=== PATIENT | female | born 1970 | race Caucasian/White ===

== ENCOUNTER 2016-11-29 18:18 | Emergency (ER) | payer OTHER ==
--- NOTE | 2016-11-29 20:27 | DIAGNOSTIC IMAGING REPORT ---
PROCEDURE: XR CHEST 2 VIEW INDICATION: CHEST PAIN TECHNIQUE: PA and lateral views. COMPARISON: Compared to chest x-ray and 04/01/2016. FINDINGS: Allowing for overlying wires and electrodes, lungs are clear. Heart and mediastinum are normal. Thorax is normal. IMPRESSION: 1. Negative chest.
--- NOTE | 2016-11-29 20:41 | DIAGNOSTIC IMAGING REPORT ---
PROCEDURE: CT HEAD WITHOUT CONTRAST INDICATION: Hypertension. Headache. TECHNIQUE: Noncontrast axial images with sagittal and coronal reformations. COMPARISON: Compared to a head CT on 07/01/2016. FINDINGS: Brain and ventricles are within normal limits (mild atrophic changes). The rest of the brain and ventricles are normal. No evidence of an acute process or hemorrhage. No evidence of hydrocephalous. Sinuses and mastoids are normal. IMPRESSION: 1. Negative head CT (mild atrophic changes). 2. Findings discussed with RUBEN Cespedes at [address] scans at this facility use dose modulation, iterative reconstruction, and/or weight-based dosing when appropriate to reduce radiation dose to as low as reasonably achievable.
--- NOTE | 2016-11-29 22:02 | DIAGNOSTIC IMAGING REPORT ---
PROCEDURE: CTA THORAX WITH CONTRAST INDICATION: Left chest pain after fall. Elevated D-dimer (2.03). TECHNIQUE: 90 ml of Isovue 370 was injected intravenously and axial images were obtained of the entire thorax with 3D sagittal and coronal MIP reconstructions. COMPARISON: Para chest x-ray on 11/29/2016. FINDINGS: There is minor scarring or atelectasis at the left lung base lungs are otherwise clear. Pulmonary vessels are normal and there is no evidence of pulmonary embolus. Heart and mediastinum are normal. Mild degenerative change of the thoracic spine. IMPRESSION: 1. Mild scarring or atelectasis at the left anterior lung base (lingular distribution). 2. No evidence of pulmonary embolus. 3. Findings discussed with RUBEN Cespedes. All CT scans at this facility use dose modulation, iterative reconstruction, and/or weight-based dosing when appropriate to reduce radiation dose to as low as reasonably achievable.
--- NOTE | 2016-11-29 22:46 | ED NURSING NOTES ---
Clinical Report - Nurses [facility] [address] [place] [address] 11/29/2016 18:17 Patient: TERRI VILLASEÑOR TRIAGE Triage time 18:24. Acuity: LEVEL 3. Chief Complaint: FALL (GLF Wednesday morning - tripped by the dog. She landed on the left side of her face (left orbit). Denies LOC at the time of the fall. Today she has had head pain and pain behind her left eye, nausea, vomiting. Also c/o pain behind left breast. Today her face became numb. She has been forgetful.). 18:31 11/29/16. SEPSIS SCREEN: Sepsis Screen. Negative (no infection suspected/documented). CAT COMA SCORE: Cat Coma Scale: 15- eyes open spontaneously (4); best verbal response- oriented x 4 (5); best motor response- obeys commands (6). --18:35 Chuy Martinez R.N. 18:24 11/29/16. BP: 210/96 (regular adult cuff) taken on the left arm, while lying. ED physician notified. HR: 67. RR: 20. O2 saturation: 100%. Temp: 98.9 F (oral). Pain level now: 8/10. Additional comments: Right arm b/p: 176/113. --18:35 Chuy Martinez R.N. 18:36 11/29/16. --18:36 Chuy Martinez R.N. 18:35 11/29/16. BP: 176/113 (regular adult cuff) taken on the right arm, while lying. ED physician notified. HR: 72. --18:36 Chuy Martinez R.N. Weight: 54.4 kg stated. Height/Length: 63 inches Per Patient. BMI: 21.2. --18:29 Chuy Martinez R.N. Medications Atenolol Oral 25 mg, at bedtime. Lisinopril Oral 20 mg, 2x a day. Omeprazole Oral 20 mg, daily. Ranitidine HCl Oral 150 mg, 2x a day. --18:28 Chuy Martinez R.N. Allergies Erythromycin. --18:28 Chuy Martinez R.N. History Arrived by private vehicle. Historian: patient. Treatment BANANA LOADER: None. Trauma activation: Pre-hospital notification of patient arrival was not received. PAST MEDICAL HX: Tetanus status: up-to-date. SOCIAL HX: Heavy tobacco smoker (cigarette)- less than 1 pack per day. Occasional alcohol use. No drug use. ABUSE ASSESSMENT: No report of abuse. --18:35 Chuy Martinez R.N. PROBLEMS: Gallbladder Disease. Hypertensive Headache. Substance Abuse. Alcoholic Liver Disease. Abdominal Pain. Hypertension. --18:28 Chuy Martinez R.N. ADDITIONAL SURGERIES: Hernia Repair. Previous Abdominal Surgery. Tubal Ligation. --18:28 Chuy Martinez R.N. Interventions ID band on patient. To treatment room. --18:35 Chuy Martinez R.N. NURSING PROGRESS NOTES 19:14 11/29/2016 Site #1 started via IV in the left wrist with an 20g angiocath, with aseptic technique and good blood return; one attempt. Blood drawn: rainbow set. Labeled in the presence of the patient and sent to the lab. Saline lock flushed with 10 mL saline. --19:17 Chuy Martinez R.N. EKG time: (19:15 PM). EKG was performed by a tech and shown to the ED physician. --19:17 Jenelle Padilla 19:14 11/29/2016 Zofran (Ondansetron HCl) IVP 4 mg given over 1 minute(s) via site #1. Allergies verified and confirmed 5 rights. IV patency established. IV site checked: no pain, redness, or swelling. IV flushed thoroughly pre- and post-medication administration. IVP given by RN. --19:18 Chuy Martinez R.N. 19:27 diazo technician with pt for blood draw. --19:27 Christ Bell R.N. 21:22 11/29/2016 Site #2 started via IV in the right antecubital space with an 18g angiocath, with aseptic technique and good blood return; one attempt. Saline lock flushed with saline. --21:22 Felix Gonzales R.N. 21:33 11/29/2016 Ativan (LORazepam) IVP 2 mg given. via site #2. Allergies verified, confirmed 5 rights and sedative warning given to the patient and patient's inventory control supervisor. IV patency established. IV site checked: no pain, redness, or swelling. IV flushed thoroughly pre- and post-medication administration. --21:58 Felix Gonzales R.N. DISPOSITION / DISCHARGE 23:06 11/29/2016 Site #2 removed upon discharge. Bandage applied. --23:06 Felix Gonzales R.N. 23:06 11/29/2016 Site #1 removed upon discharge. Bandage applied. --23:06 Felix Gonzales R.N. Departure time: 2300. Condition at departure: improved. No learning barriers present. Discharge instructions provided and reviewed with the patient and spouse. Reviewed warnings. Reviewed medication(s). Treatments reviewed. Activity restrictions reviewed. Patient and spouse verbalized understanding. Written instructions provided in Vietnamese. The patient was discharged by the physician quality control assistant. She was discharged home and accompanied by spouse. She left the Emergency Department ambulatory and via private vehicle. Spouse driving. --23:07 Felix Gonzales R.N. 23:05 11/29/16. BP: 161/95. HR: 80. RR: 16. O2 saturation: 98%. Temp: 98 F. Pain level now 0/10. --23:07 Felix Gonzales R.N. Locked/Released at 11/29/2016 23:07 by Felix Gonzales R.N.
--- NOTE | 2016-11-29 22:46 | ED NURSING NOTES ---
Clinical Report - Nurses [facility] [address] [place] [address] 11/29/2016 18:17 Patient: TERRI VILLASEÑOR TRIAGE Triage time 18:24. Acuity: LEVEL 3. Chief Complaint: FALL (GLF Wednesday morning - tripped by the dog. She landed on the left side of her face (left orbit). Denies LOC at the time of the fall. Today she has had head pain and pain behind her left eye, nausea, vomiting. Also c/o pain behind left breast. Today her face became numb. She has been forgetful.). 18:31 11/29/16. SEPSIS SCREEN: Sepsis Screen. Negative (no infection suspected/documented). CAT COMA SCORE: Cat Coma Scale: 15- eyes open spontaneously (4); best verbal response- oriented x 4 (5); best motor response- obeys commands (6). --18:35 Chuy Martinez R.N. 18:24 11/29/16. BP: 210/96 (regular adult cuff) taken on the left arm, while lying. ED physician notified. HR: 67. RR: 20. O2 saturation: 100%. Temp: 98.9 F (oral). Pain level now: 8/10. Additional comments: Right arm b/p: 176/113. --18:35 Chuy Martinez R.N. 18:36 11/29/16. --18:36 Chuy Martinez R.N. 18:35 11/29/16. BP: 176/113 (regular adult cuff) taken on the right arm, while lying. ED physician notified. HR: 72. --18:36 Chuy Martinez R.N. Weight: 54.4 kg stated. Height/Length: 63 inches Per Patient. BMI: 21.2. --18:29 Chuy Martinez R.N. Medications Atenolol Oral 25 mg, at bedtime. Lisinopril Oral 20 mg, 2x a day. Omeprazole Oral 20 mg, daily. Ranitidine HCl Oral 150 mg, 2x a day. --18:28 Chuy Martinez R.N. Allergies Erythromycin. --18:28 Chuy Martinez R.N. History Arrived by private vehicle. Historian: patient. Treatment TRY OUT PERSON: None. Trauma activation: Pre-hospital notification of patient arrival was not received. PAST MEDICAL HX: Tetanus status: up-to-date. SOCIAL HX: Heavy tobacco smoker (cigarette)- less than 1 pack per day. Occasional alcohol use. No drug use. ABUSE ASSESSMENT: No report of abuse. --18:35 Chuy Martinez R.N. PROBLEMS: Gallbladder Disease. Hypertensive Headache. Substance Abuse. Alcoholic Liver Disease. Abdominal Pain. Hypertension. --18:28 Chuy Martinez R.N. ADDITIONAL SURGERIES: Hernia Repair. Previous Abdominal Surgery. Tubal Ligation. --18:28 Chuy Martinez R.N. Interventions ID band on patient. To treatment room. --18:35 Chuy Martinez R.N. NURSING PROGRESS NOTES 19:14 11/29/2016 Site #1 started via IV in the left wrist with an 20g angiocath, with aseptic technique and good blood return; one attempt. Blood drawn: rainbow set. Labeled in the presence of the patient and sent to the lab. Saline lock flushed with 10 mL saline. --19:17 Chuy Martinez R.N. EKG time: (19:15 PM). EKG was performed by a tech and shown to the ED physician. --19:17 Jenelle Padilla 19:14 11/29/2016 Zofran (Ondansetron HCl) IVP 4 mg given over 1 minute(s) via site #1. Allergies verified and confirmed 5 rights. IV patency established. IV site checked: no pain, redness, or swelling. IV flushed thoroughly pre- and post-medication administration. IVP given by RN. --19:18 Chuy Martinez R.N. 19:27 sanitation technician with pt for blood draw. --19:27 Christ Bell R.N. 21:22 11/29/2016 Site #2 started via IV in the right antecubital space with an 18g angiocath, with aseptic technique and good blood return; one attempt. Saline lock flushed with saline. --21:22 Felix Gonzales R.N. 21:33 11/29/2016 Ativan (LORazepam) IVP 2 mg given. via site #2. Allergies verified, confirmed 5 rights and sedative warning given to the patient and patient's flight engineer. IV patency established. IV site checked: no pain, redness, or swelling. IV flushed thoroughly pre- and post-medication administration. --21:58 Felix Gonzales R.N. DISPOSITION / DISCHARGE 23:06 11/29/2016 Site #2 removed upon discharge. Bandage applied. --23:06 Felix Gonzales R.N. 23:06 11/29/2016 Site #1 removed upon discharge. Bandage applied. --23:06 Felix Gonzales R.N. Departure time: 2300. Condition at departure: improved. No learning barriers present. Discharge instructions provided and reviewed with the patient and spouse. Reviewed warnings. Reviewed medication(s). Treatments reviewed. Activity restrictions reviewed. Patient and spouse verbalized understanding. Written instructions provided in Kyrgyz. The patient was discharged by the physician assistant store manager sales. She was discharged home and accompanied by spouse. She left the Emergency Department ambulatory and via private vehicle. Spouse driving. --23:07 Felix Gonzales R.N. 23:05 11/29/16. BP: 161/95. HR: 80. RR: 16. O2 saturation: 98%. Temp: 98 F. Pain level now 0/10. --23:07 Felix Gonzales R.N. Locked/Released at 11/29/2016 23:07 by Felix Gonzales R.N.
--- NOTE | 2016-11-29 22:46 | ED CLINICAL REPORT ---
Clinical Report - Physicians/Mid Levels [facility] [address] [place] [address] 11/29/2016 18:17 Patient: TERRI VILLASEÑOR Time Seen: 18:35; initial patient contact, initial documentation, patient care assumed. Arrived- By private vehicle. Historian- patient and spouse. HISTORY OF PRESENT ILLNESS Chief Complaint: INJURY TO FACE. Location of injuries- face and left knee. The injury occurred about 10 days ago. Fell. Occurred at home. The patient complains of mild pain. The patient sustained a blow to the head. No neck pain, loss of consciousness or seizure. Not dazed. tripped over dog, fell, injuries almost healed, but since fall, pt has been confused, forgetful, had some vomiting, and doesn't feel good bp issues for over a year, has been to the er a few times for high bp and cva work up. REVIEW OF SYSTEMS No seizure, difficulty breathing or laceration. She has had localized numbness of the right hand (mild) and left hand (mild). She has had mild, well localized left-sided chest pain (c/o L breast pain and states she thinks she injured during fall). No radiation or associated symptoms. Denies exertional chest pain. She has had vomiting (x4 episodes today). No bilious emesis, feculent emesis, blood-tinged emesis, coffee-grounds emesis or frankly bloody emesis. No unusually dark emesis. All systems otherwise negative, except as recorded above. PAST HISTORY See nurses notes. PROBLEMS: Gallbladder Disease. Hypertensive Headache. Substance Abuse. Alcoholic Liver Disease. Abdominal Pain. Hypertension. --18:28 Chuy Martinez R.N. ADDITIONAL SURGERIES: Hernia Repair. Previous Abdominal Surgery. Tubal Ligation. --18:28 Chuy Martinez R.N. SOCIAL HISTORY Heavy tobacco smoker. Occasional alcohol use. Last drink was just prior to arrival. No drug use. No recent travel. Is a local resident. She lives with spouse. FAMILY HISTORY No significant family medical history. ADDITIONAL NOTES The nursing notes have been reviewed with agreement regarding the chief complaint, HPI, ROS, PMH and patient medications and allergies. PHYSICAL EXAM Vital Signs: 11/29/2016 18:24 BP: 210/96. HR: 67. RR: 20. O2 saturation: 100%. Temp: 98.9 F. Pain level now: 8. Have been reviewed as abnormal and appear to be correct. Hypertensive. Heart rate normal. Respiratory rate normal. Temperature normal. Oxygen saturation normal. Appearance: Alert. No acute distress. (alcohol breath). Head: Head non-tender. No swelling of head. Eyes: Pupils equal, round and reactive to light. EOM intact. ENT: No dental injury. Pharynx normal. Neck: Painless ROM. Non-tender. CVS: Normal heart rate and rhythm. Heart sounds normal. Pulses normal. Respiratory: Breath sounds normal. Chest nontender. Abdomen: Soft and nontender. No organomegaly. Back: No tenderness. ROM normal. Skin: Skin intact. Skin warm and dry. Normal skin color. Normal skin turgor. Extremities: Abnormal inspection. Extremities not atraumatic. Pelvis stable. Left knee: small abrasion located in the patella. Neurovascular intact distally. (healing small abrasion). No ligamentous laxity present. No joint effusion. No erythema, tenderness, swelling, laceration or ecchymosis. No puncture wound, foreign body or deformity. No limitation in ROM. No lower extremity edema. Neuro: Oriented X 3. Mood/affect normal. Speech abnormal. No motor deficit. Normal gait. No sensory deficit. (slurred speech). LABS, X-RAYS, AND EKG EKG: EKG time: (1914). No acute process. No acute ischemia. Normal EKG. Rate: 68. Left atrial enlargement. Prolonged QT. . interpreted by dr jameson, and reviewed by me after. The EKG appears to be a good tracing. Laboratory Tests: UA-Culture if indicated: (MELITA: 11/29/2016 19:50) ( MsgRcvd 11/29/2016 20:07) Final results Test Result Flag Units (Reference) URINE COLOR YELLOW URINE APPEARANCE CLEAR URINE GLUCOSE NEGATIVE (NEGATIVE) URINE BILIRUBIN NEGATIVE (NEGATIVE) URINE KETONE 1+ (NEGATIVE) URINE SPECIFIC GRAVITY 1.010 (1.010-1.030) URINE PH 6.0 (5.0-8.0) URINE PROTEIN NEGATIVE (NEGATIVE) URINE UROBILINOGEN 0.2 EU/dL (0.2-1.0) URINE NITRITE POSITIVE (NEGATIVE) URINE BLOOD NEGATIVE (NEGATIVE) URINE LEUK ESTERASE POSITIVE (NEGATIVE) URINE RBC 0-1 rbc/hpf (0-1) URINE WBC 5-10 wbc/hpf (0-1) URINE EPITHELIAL CELLS 3-5 EPI/hpf (0-5) URINE BACTERIA MANY (4+) (NONE SEEN) URINE COMMENT CULTURE INDICATED URINE CULTURES ARE SET-UP BASED ON THE FOLLOWING CRITERIA:POSITIVE NITRITEPOSITIVE LEUKOCYTE ESTERASEGREATER THAN 10 WHITE BLOOD CELLSMODERATE (2+) OR GREATER BACTERIA CBC w Diff: (MELITA: 11/29/2016 19:00) ( MsgRcvd 11/29/2016 19:26) Final results Test Result Flag Units (Reference) WHITE BLOOD COUNT 6.6 K/uL (4.5-11.5) RED BLOOD COUNT 4.34 M/uL (4.00-5.20) HEMOGLOBIN 14.3 gm/dL (12.0-16.0) HEMATOCRIT 41.3 % (36.0-46.0) MEAN CELL VOLUME 95 fL (80-100) MEAN CORPUSCULAR HGB 33 pg (26-34) MEAN CORPUSCULAR HGB CONC 35 g/dL (31-37) RED CELL DISTRIBUTION WIDTH 12.8 % (11.6-14.8) PLATELET COUNT 236 K/uL (150-400) NEUTROPHIL % 81.7 H % (50-75) LYMPH % 15.7 L % (25-40) MONO % 1.7 L % (3-14) EOSINOPHIL % 0.6 % (0-4) BASOPHIL % 0.3 % (0-2) [id number]: (MELITA: 11/29/2016 19:25) ( MsgRcvd 11/29/2016 19:52) Final results Test Result Flag Units (Reference) D-DIMER QUANTITATIVE 2.03 H ug/mLFEU (0.27-0.52) The primary value of this quantitative assay relates toits negative predictive value (i.e. exclusion) of pulmonaryembolism/deep vein thrombosis/DIC.Elevated levels of d-dimer may also occur with:, age, cancer, inflammation, liver disease,post-op, infection, hematoma, coronary disease, peripheralarteriopathy, bleeding disorders and thrombolytic treatment.Results should be correlated with other clinical andradiological data.Testing Methodology: Latex Immunoassay Urine Drug Screen: (MELITA: 11/29/2016 19:50) ( Mscvd 11/29/2016 20:22) Final results Test Result Flag Units (Reference) AMPHETAMINE/METHAMPHETAMINE NEGATIVE (NEGATIVE) BARBITURATE NEGATIVE (NEGATIVE) BENZODIAZEPINE POSITIVE H (NEGATIVE) CANNABINOID NEGATIVE (NEGATIVE) COCAINE NEGATIVE (NEGATIVE) ECSTASY NEGATIVE (NEGATIVE) METHADONE NEGATIVE (NEGATIVE) OPIATE POSITIVE H (NEGATIVE) The urine drug screen is a qualitative screening test fordrug overdose and abuse. All screen results should beconsidered as presumptive.Drugs screened for are as follows:BenzodiazepinesCocaineAmphetamines/MetamphetaminesTHC (Tetrahydrocannabinol)OpiatesBarbituratesEcstasyMethadonePositive results are unconfirmed. For confirmation, notifythe lab for the specimen to be sent to the reference lab.All confirmations must be performed by a differentmethodology.The ingestion of natural herbal and plant productscontaining Ephedra/Ephedra metabolites can produce in urineone or more substances capable of cross reacting withamphetamine/methamphetamine immunoassays. These testsprovide a preliminary result only. A more specificalternative chemical method must be used to obtain aconfirmed analytical result. CMP: (MELITA: 11/29/2016 19:00) ( NvgRcvd 11/29/2016 19:36) Final results Test Result Flag Units (Reference) GLUCOSE 80 mg/dL (70-110) BUN 7 mg/dL (7-18) CREATININE 0.5 L mg/dL (0.6-1.3) Estimated GFR >60 mL/min Estimated GFR- >60 mL/min Note: Persistent reduction over 3 months in eGFR<60 mL/min/1.73 m2 defines CKD. Patients with eGFR values>=60 mL/min/1.73 m2 may also have CKD if evidence ofpersistent proteinuria. Additional information may be foundat [email or web address].org. SODIUM 136 mmol/L (136-145) POTASSIUM 4.3 mmol/L (3.5-5.1) CHLORIDE 96 L mmol/L (98-107) CARBON DIOXIDE 23 mmol/L (21-32) CALCIUM 9.6 mg/dL (8.5-10.1) TOTAL PROTEIN 8.2 g/dL (6.4-8.2) ALBUMIN 4.4 g/dL (3.3-5.0) BILIRUBIN, TOTAL 0.8 mg/dL (0.0-1.0) ALKALINE PHOSPHATASE 114 U/L (46-116) AST (SGOT) 34 U/L (15-37) ALT (SGPT) 27 U/L (12-78) CPK 48 U/L (24-260) TROPONIN I <0.05 L ng/mL (0.00-1.5) TROPONIN REFERENCE RANGE:<0.1 NEGATIVE0.1-1.5 INDETERMINANT>1.5 POSITIVE ETHYL ALCOHOL 54 H mg/dL (3-10) . Note - Tests: (CTA Chest 2156 IMPRESSION: 1. Mild scarring or atelectasis at the left anterior lung base (lingular distribution). 2. No evidence of pulmonary embolus. 3. Findings discussed with RUBEN Cespedes. All CT scans at this facility use dose modulation, iterative reconstruction, and/or weight-based dosing when appropriate to reduce radiation dose to as low as reasonably achievable. Electronically Final signed by:Vince Ding MD 11/29/2016 10:00:27 PM). PROGRESS AND PROCEDURES Course of Care: 2049. Pt case ran by dr jameson, who agreed with my cta chest order [id number]. pt and spouse aware of lab results and need for ct chest r/o pe L chest examined, nontender, no bruising, no evidence of trauma, even though pt stated she hurt her chest in the fall 2209. had discussion with pt and spouse regarding risks of htn and encouraged her to f/u with pcp or specialist, agreed to give name of cardio. 11/29/2016 21:51 BP: 188/91. HR: 73. RR: 16. O2 saturation: 96%. Temp: 98 F. Pain level now: 0/10. Vital Signs: have been reviewed as abnormal and appear to be correct. Hypertensive. Heart rate normal. Respiratory rate normal. Temperature normal. Oxygen saturation normal. Patient counseled in person regarding the patient's stable condition, test results and diagnosis. 2210. Differential Diagnosis: Other possible considerations: alcohol, substance abuse, cva, tia, brain tumor, anuerysm, closed head injury. Above considerations are based on history, physical exam, laboratory data, X-Ray data, EKG and other information. Differential diagnosis was discussed with patient and patient's spouse. Disposition orders written. Disposition: Discharged home in good and improved condition (22:46). Condition: good and stable. CLINICAL IMPRESSION Acute urinary tract infection. No cystitis, pyelonephritis or hematuria. Uncontrolled essential hypertension. Fall on same level by slipping. INSTRUCTIONS (htn). Warnings: GENERAL WARNINGS: Return or contact your physician immediately if your condition worsens or changes unexpectedly, if not improving as expected, or if other problems arise. Specifically return if problem worsens. Prescription Medications: Bactrim DS 800 mg / 160 mg: Take 1 tablet orally every 12 hours for 7 days. Dispense fourteen (14). No refills. Substitution is permissible. Follow-up: Screening today revealed the patient's blood pressure to be in the hypertensive range. The patient should follow up with a primary care provider for blood pressure management. Understanding of the discharge instructions verbalized by patient. Follow-up with: Hood Toscano MD, Cardiology, , [facility] - Cardiology, [address] [place] [address] [address], [place], [address] Follow up in about three days even if well. Call for an appointment. Summary of care provided to patient. (Electronically signed by Radha Villanueva A.R.N.P. 11/30/2016 0:09)
--- NOTE | 2016-11-29 22:46 | ED ORDER SUMMARY ---
..... Patient: TERRI VILLASEÑOR OrderSheet [facility] VisitID: [id number] [address] [place] [address] 46y, F Registration Date/Time: 11/29/2016 ORDER SHEET Weight: 54.4 kg (stated) Allergies: Erythromycin GENERAL ORDERS: CT Head wo Cont Urgent (18:54 11/29/2016 HBivens A.R.N.P.) (Ack 19:00 LMuller) (19:52 CHagerty ER Marketing Sales Representative) Chest 2V Urgent (18:54 11/29/2016 HBivens A.R.N.P.) (Ack 19:00 LMuller) (19:52 CHagerty ER Marketing Sales Representative) CBC w Diff Urgent (18:55 11/29/2016 HBivens A.R.N.P.) (Ack 19:00 LMuller) (19:16 JSimbeck R.N.) CMP Urgent (18:55 11/29/2016 HBivens A.R.N.P.) (Ack 19:00 LMuller) (19:16 JSimbeck R.N.) Ethyl Alcohol Urgent (18:55 11/29/2016 HBivens A.R.N.P.) (Ack 19:00 LMuller) (19:16 JSimbeck R.N.) D-Dimer Urgent (18:55 11/29/2016 HBivens A.R.N.P.) (Ack 19:00 LMuller) (19:16 JSimbeck R.N.) CPK Urgent (18:55 11/29/2016 HBivens A.R.N.P.) (Ack 19:00 LMuller) (19:16 JSimbeck R.N.) Troponin-I Urgent (18:55 11/29/2016 HBivens A.R.N.P.) (Ack 19:00 LMuller) (19:16 JSimbeck R.N.) UA-Culture if indicated Urgent (18:55 11/29/2016 HBivens A.R.N.P.) (Ack 19:00 LMuller) (20:18 JBullard R.N.) Urine Drug Screen Urgent (18:55 11/29/2016 HBivens A.R.N.P.) (Ack 19:00 LMuller) (20:18 JBullard R.N.) EKG - ER Stat (18:55 11/29/2016 HBivens A.R.N.P.) (Ack 19:00 LMuller) (19:18 RKaruga) (19:18 JSimbeck R.N.) CTA Thorax w Cont (No) (normal) Urgent (20:53 11/29/2016 HBivens A.R.N.P.) (Ack 21:08 CHagerty ER Marketing Sales Representative) (22:03 JBullard R.N.) Vitals (21:19 11/29/2016 HBivens A.R.N.P.) (21:22 JBullard R.N.) Professional System Administrator (Continuous) (21:19 11/29/2016 HBivens A.R.N.P.) (21:22 JBullard R.N.) MEDICATION ORDERS: IV FLUIDS: IV Saline Lock (18:55 11/29/2016 HBivens A.R.N.P.) (19:17 Tolueck R.N.) Zofran IV 4 mg (NOW) (18:55 11/29/2016 HBivens A.R.N.P.) (19:18 JSimbeck R.N.) Ativan IV 2 mg (HIGH ALERT MEDICATION, NOW) (21:17 11/29/2016 HBivens A.R.N.P.) (21:58 JBullard R.N.) ORDER SHEET NOTES: [Electronically signed by Felix Gonzales R.N. (23:07 11/29/2016)] [Electronically signed by Radha Villanueva.R.N.P. (00:09 11/30/2016)] [Electronically locked/signed by Felix Gonzales R.N. (23:07 11/29/2016)]
--- NOTE | 2016-11-29 22:46 | ED ORDER SUMMARY ---
..... Patient: TERRI VILLASEÑOR OrderSheet [facility] VisitID: [id number] [address] [place] [address] 46y, F Registration Date/Time: 11/29/2016 ORDER SHEET Weight: 54.4 kg (stated) Allergies: Erythromycin GENERAL ORDERS: CT Head wo Cont Urgent (18:54 11/29/2016 HBivens A.R.N.P.) (Ack 19:00 LMuller) (19:52 CHagerty ER Damper Fitter) Chest 2V Urgent (18:54 11/29/2016 HBivens A.R.N.P.) (Ack 19:00 LMuller) (19:52 CHagerty ER Damper Fitter) CBC w Diff Urgent (18:55 11/29/2016 HBivens A.R.N.P.) (Ack 19:00 LMuller) (19:16 JSimbeck R.N.) CMP Urgent (18:55 11/29/2016 HBivens A.R.N.P.) (Ack 19:00 LMuller) (19:16 JSimbeck R.N.) Ethyl Alcohol Urgent (18:55 11/29/2016 HBivens A.R.N.P.) (Ack 19:00 LMuller) (19:16 JSimbeck R.N.) D-Dimer Urgent (18:55 11/29/2016 HBivens A.R.N.P.) (Ack 19:00 LMuller) (19:16 JSimbeck R.N.) CPK Urgent (18:55 11/29/2016 HBivens A.R.N.P.) (Ack 19:00 LMuller) (19:16 JSimbeck R.N.) Troponin-I Urgent (18:55 11/29/2016 HBivens A.R.N.P.) (Ack 19:00 LMuller) (19:16 JSimbeck R.N.) UA-Culture if indicated Urgent (18:55 11/29/2016 HBivens A.R.N.P.) (Ack 19:00 LMuller) (20:18 JBullard R.N.) Urine Drug Screen Urgent (18:55 11/29/2016 HBivens A.R.N.P.) (Ack 19:00 LMuller) (20:18 JBullard R.N.) EKG - ER Stat (18:55 11/29/2016 HBivens A.R.N.P.) (Ack 19:00 LMuller) (19:18 RKaruga) (19:18 JSimbeck R.N.) CTA Thorax w Cont (No) (normal) Urgent (20:53 11/29/2016 HBivens A.R.N.P.) (Ack 21:08 CHagerty ER Damper Fitter) (22:03 JBullard R.N.) Vitals (21:19 11/29/2016 HBivens A.R.N.P.) (21:22 JBullard R.N.) Tax Adjuster (Continuous) (21:19 11/29/2016 HBivens A.R.N.P.) (21:22 JBullard R.N.) MEDICATION ORDERS: IV FLUIDS: IV Saline Lock (18:55 11/29/2016 HBivens A.R.N.P.) (19:17 Tolueck R.N.) Zofran IV 4 mg (NOW) (18:55 11/29/2016 HBivens A.R.N.P.) (19:18 JSimbeck R.N.) Ativan IV 2 mg (HIGH ALERT MEDICATION, NOW) (21:17 11/29/2016 HBivens A.R.N.P.) (21:58 JBullard R.N.) ORDER SHEET NOTES: [Electronically signed by Felix Gonzales R.N. (23:07 11/29/2016)] [Electronically signed by Radha Villanueva.R.N.P. (00:09 11/30/2016)] [Electronically locked/signed by Felix Gonzales R.N. (23:07 11/29/2016)]
--- NOTE | 2016-11-30 00:09 | ED DISCHARGE INSTRUCTIONS ---
Patient: TERRI VILLASEÑOR General Instructions [facility] VisitID: [id number] [place] [address] 46y, F Registration Date/Time: 11/29/2016 Acute urinary tract infection. No cystitis, pyelonephritis or hematuria. Uncontrolled essential hypertension. Fall on same level by slipping. INSTRUCTIONS (htn). Warnings: GENERAL WARNINGS: Return or contact your physician immediately if your condition worsens or changes unexpectedly, if not improving as expected, or if other problems arise. Specifically return if problem worsens. Prescription Medications: Bactrim DS 800 mg / 160 mg: Take 1 tablet orally every 12 hours for 7 days. Dispense fourteen (14). No refills. Substitution is permissible. Follow-up: Screening today revealed the patient's blood pressure to be in the hypertensive range. The patient should follow up with a primary care provider for blood pressure management. Understanding of the discharge instructions verbalized by patient. Follow-up with: Hood Toscano MD, Cardiology, , [facility] - Cardiology, [address] [address] [address], [place], [address] Follow up in about three days even if well. Call for an appointment. Summary of care provided to patient. ADDITIONAL INFORMATION Mechanical Fall You have had a fall today. It appears that the cause is mechanical. That means that you slipped, tripped or lost your balance. If your fall had been due to fainting or a seizure, further tests would be required. Home Care: Rest today and resume your normal activities when you are feeling back to normal. If you were injured during the fall, follow the advice from your doctor regarding care of your injury. You may use acetaminophen (Tylenol) or ibuprofen (Motrin, Advil) to control pain, unless another pain medicine was prescribed. [NOTE: If you have chronic liver or kidney disease or ever had a stomach ulcer or GI bleeding, talk with your doctor before using these medicines.] Fall Prevention: Was there anything that caused your fall that can be fixed, removed, or replaced? Make your home safe by keeping walkways clear of objects you may trip over. Use non-slip pads under rugs. Do not walk in poorly lit areas. Do not stand on chairs or wobbly ladders. Use caution when reaching overhead or looking upward. This position can cause a loss of balance. Be sure your shoes fit properly, have non-slip bottoms and are in good condition. Be cautious when going up and down curbs, and walking on uneven sidewalks. If your balance is poor, consider using a cane or walker. Stay as active as you can. Balance, flexibility, strength, and endurance all come from exercise. They all play a role in preventing falls. Follow Up with your doctor or as advised by our staff. Get Prompt Medical Attention if any of the following occur: Repeated mechanical falls, or unexplained falls Dizziness, fainting or seizure Severe headache Chest pain or shortness of breath Palpitations (very rapid or very slow or irregular heartbeat) Blood in vomit, stools (black or red color) Weakness of an arm or leg or one side of the face Difficulty with speech or vision Bladder Infection,Female (Adult) A bladder infection ("cystitis" or "UTI") usually causes a constant urge to urinate and a burning when passing urine. Urine may be cloudy, smelly or dark. There may be pain in the lower abdomen. A bladder infection occurs when bacteria from the vaginal area enter the bladder opening (urethra). This can occur from sexual intercourse, wearing tight clothing, dehydration and other factors. Home Care: Drink lots of fluids (at least 6-8 glasses a day, unless you must restrict fluids for other medical reasons). This will force the medicine into your urinary system and flush the bacteria out of your body. Avoid sexual intercourse until your symptoms are gone. Avoid caffeine, alcohol and spicy foods. These can irritate the bladder. A bladder infection is treated with antibiotics. You may also be given Pyridium (generic = phenazopyridine) to reduce the burning sensation. This medicine will cause your urine to become a bright orange color. The orange urine may stain clothing. You may wear a pad or panty-liner to protect clothing. Preventing Future Infections: Always wipe from front to back after a bowel movement. Keep the genital area clean and dry. Drink plenty of fluids each day to avoid dehydration. Both sexual partners should wash before intercourse. Urinate right after intercourse to flush out the bladder. Wear cotton underwear and cotton-lined panty hose; avoid tight-fitting pants. If you are on control pills and are having frequent bladder infections, discuss with your doctor. Follow Up: Return to this facility or see your doctor if ALL symptoms are not gone after three days of treatment. Get Prompt Medical Attention if any of the following occur: Fever of 100.4F (38C) or higher, or as directed by your healthcare provider No improvement by the third day of treatment Increasing back or abdominal pain Repeated vomiting; unable to keep medicine down Weakness, dizziness or fainting Vaginal discharge Pain, redness or swelling in the labia (outer vaginal area) High Blood Pressure --Established High Blood Pressure (Hypertension) is a chronic disease. The cause is unknown in most cases. It can usually be controlled with lifestyle changes and/or medicines. Symptoms of high blood pressure may include headache, dizziness, visual changes, chest pain and shortness of breath. Sometimes it causes no symptoms at all. However, even if there are no symptoms, untreated high blood pressure increases the risk of heart attack, also known as acute myocardial infarction, or AMI, and stroke. It is a serious health risk and should not be ignored. A normal blood pressure is 120/80 or less. The first (top) number is the "systolic" pressure. The second (bottom) number is the "diastolic" pressure. Hypertension exists when either the top number is 140 or higher, OR the bottom number is 90 or higher on repeated measurements. Home Care: All patients with high blood pressure should do the following to lower their pressure. If you are on medicines, then these methods may reduce or eliminate your need for medicines in the future. Begin a weight loss program if you are overweight. Reduce your salt intake. Avoid high salt foods (olives, pickles, smoked meats, salted potato chips, etc.). Do not add salt to your food at the table. Use only small amounts of salt when cooking. Begin an exercise program. Discuss with your doctor what type of exercise program would be best for you. It doesn't have to be difficult. Even brisk walking for 20 minutes three times a week is a good form of exercise. Avoid medicines which contain heart stimulants. This includes many cold and sinus decongestant pills and sprays as well as diet pills. Check the warnings about hypertension on the label. Stimulants such as amphetamine or cocaine could be lethal for someone with hypertension. Never take these. Limit your caffeine intake or switch to caffeine-free products. Stop smoking. If you are a long-time smoker, this can be hard. Enroll in a stop-smoking program to improve your chance of success. Learning how to handle stress better is an important part of any program to lower blood pressure. Learn about relaxation methods such as meditation, yoga or biofeedback. If medicines were prescribed, take them exactly as directed. Missing doses may cause your blood pressure get out of control. Consider buying an automatic blood pressure machine (available at most pharmacies). Use this to monitor your blood pressure at home and report the results to your doctor. Follow Up: Regular visits to your own physician for blood pressure checks and medicine adjustment is an important part of your care. Make a follow-up appointment as directed by our staff. Get Prompt Medical Attention if any of the following occur: Chest pain or shortness of breath Severe headache Throbbing or rushing sound in the ears Nosebleed Sudden severe abdominal pain Extreme drowsiness, confusion or fainting Dizziness or vertigo (dizziness with spinning sensation) Weakness of an arm or leg or one side of the face Difficulty with speech or vision Hypertension, Out Of Control (Established) Your blood pressure was unusually high today. This can occur as a result of missing doses of your blood pressure medicine. Some asthma inhalers, decongestants, diet pills, and street drugs such as cocaine and amphetamine can worsen hypertension. An increase in body weight, increase in salt intake, smoking, and caffeine are other causes. Emotional upset or acute pain can cause a sudden rapid rise in blood pressure which may return to normal after a period of rest. A normal blood pressure is less than 140/90. The first (top) number is the systolic pressure. The second (bottom) number is the diastolic pressure. Hypertension exists when either the top number is 140 or higher, OR the bottom number is 90 or higher on repeated measurements. Home Care: All patients with high blood pressure should do the following to lower their pressure. If you are on blood pressure medicines, then these methods may reduce or eliminate your need for medicines in the future. Begin a weight-loss program if you are overweight. Reduce your salt intake. Avoid high-salt foods (olives, pickles, smoked meats, salted potato chips, etc.). Do not add salt to your food at the table. Use only small amounts of salt when cooking. Begin an exercise program. Discuss with your doctor what type of exercise program would be best for you. It doesnt have to be difficult. Even brisk walking for 20 minutes3 times a week is a good form of exercise. Avoid medicines which contain heart stimulants. This includes many cold and sinus decongestant pills and sprays as well as diet pills. Check the warnings about hypertension on the label. Stimulants such as amphetamine or cocaine could be lethal for someone with hypertension. Never take these. Limit your caffeine intake or switch to decaf. Stop smoking. If you are a long-time smoker, this can be hard. Enroll in a stop-smoking program to improve your chance of success. Talk to your physician about ways to improve your chance of success. Learning how to handle stress better is an important part of any program to lower blood pressure. Learn about relaxation methods such as meditation, yoga, or biofeedback. If medicines were prescribed, take them exactly as directed. Missing doses may cause your blood pressure to get out of control. Consider buying an automatic blood pressure machine (available at many pharmacies). Use this to monitor your blood pressure and report to your doctor. Follow Up: Regular visits to your own doctor for blood pressure checks and medicine adjustment is an important part of your care. Make a follow-up appointment as directed by our staff. Get Prompt Medical Attention if any of the following occur: Chest, arm, shoulder, neck, or upper back pain Shortness of breath Severe headache Throbbing or rushing sound in the ears Nosebleed Extreme drowsiness, confusion, or fainting Dizziness or vertigo (dizziness with spinning sensation) Weakness of an arm or leg or one side of the face Difficulty with speech or vision Sulfamethoxazole, Trimethoprim Oral tablet What is this medicine? SULFAMETHOXAZOLE; TRIMETHOPRIM or SMX-TMP (suhl fuh meth OK perla zohl; trye METH oh prim) is a combination of a sulfonamide antibiotic and a second antibiotic, trimethoprim. It is used to treat or prevent certain kinds of bacterial infections. It will not work for colds, flu, or other viral infections. How should I use this medicine? Take this medicine by mouth with a full glass of water. Follow the directions on the prescription label. Take your medicine at regular intervals. Do not take it more often than directed. Do not skip doses or stop your medicine early. Talk to your hackler doll wigs regarding the use of this medicine in children. Special care may be needed. This medicine has been used in children as young as 2 months of age. What side effects may I notice from receiving this medicine? Side effects that you should report to your doctor or health behavioral health care coordinator as soon as possible: allergic reactions like skin rash or hives, swelling of the face, lips, or tongue breathing problems fever or chills, sore throat irregular heartbeat, chest pain joint or muscle pain pain or difficulty passing urine red pinpoint spots on skin redness, blistering, peeling or loosening of the skin, including inside the mouth unusual bleeding or bruising unusually weak or tired yellowing of the eyes or skin Side effects that usually do not require medical attention (report to your doctor or health behavioral health care coordinator if they continue or are bothersome): diarrhea dizziness headache loss of appetite nausea, vomiting nervousness What may interact with this medicine? Do not take this medicine with any of the following medications: aminobenzoate potassium dofetilide metronidazole This medicine may also interact with the following medications: KATHIA inhibitors like benazepril, enalapril, lisinopril, and ramipril cyclosporine digoxin diuretics indomethacin medicines for diabetes methenamine methotrexate phenytoin potassium supplements pyrimethamine sulfinpyrazone tricyclic antidepressants warfarin What if I miss a dose? If you miss a dose, take it as soon as you can. If it is almost time for your next dose, take only that dose. Do not take double or extra doses. Where should I keep my medicine? Keep out of the reach of children. Store at room temperature between 20 to 25 degrees C (68 to 77 degrees F). Protect from light. Throw away any unused medicine after the expiration date. What should I tell my health care provider before I take this medicine? They need to know if you have any of these conditions: anemia asthma being treated with anticonvulsants if you frequently drink alcohol containing drinks kidney disease liver disease low level of folic acid or acaeivw-1-hicheyrjc dehydrogenase poor nutrition or malabsorption porphyria severe allergies thyroid disorder an unusual or allergic reaction to sulfamethoxazole, trimethoprim, sulfa drugs, other medicines, foods, dyes, or preservatives or trying to get breast-feeding What should I watch for while using this medicine? Tell your doctor or health behavioral health care coordinator if your symptoms do not improve. Drink several glasses of water a day to reduce the risk of kidney problems. Do not treat diarrhea with over the counter products. Contact your doctor if you have diarrhea that lasts more than 2 days or if it is severe and watery. This medicine can make you more sensitive to the sun. Keep out of the sun. If you cannot avoid being in the sun, wear protective clothing and use a sunscreen. Do not use sun lamps or tanning beds/booths. You have been given the following additional information: Fall, Mechanical Bladder Infection, Female (Adult) Hypertension, Established Hypertension, Established, Out Of Control Sulfamethoxazole, Trimethoprim Oral tablet (Electronically signed by Radha Villanueva A.R.N.P. 11/30/2016 0:09)
--- NOTE | 2016-11-30 00:10 | ED MED RECONCILIATION SUMMARY ---
Patient: TERRI VILLASEÑOR Medication Reconciliation Report [facility] VisitID: [id number] [address] [place] [address] 46y, F Registration Date/Time: 11/29/2016 Weight: 54.4 kg Height/Length: 63 in. BMI: 21.3 ALLERGIES: Erythromycin The patient's Home Medications are listed below: THE FOLLOWING MEDICATIONS NEED TO BE RECONCILED: Atenolol Oral 25 mg, at bedtime Lisinopril Oral 20 mg, 2x a day Omeprazole Oral 20 mg, daily Ranitidine HCl Oral 150 mg, 2x a day The source(s) of the original Home Medication information: Not obtained. The following Medications were given to the patient in the Emergency Department: Zofran [IVP] IVP 4 mg, administered: 11/29/2016 7:14:00 PM Ativan [IVP] IVP 2 mg, administered: 11/29/2016 9:33:00 PM The following Medications were prescribed to the patient: Bactrim DS 800 mg / 160 mg: Take 1 tablet orally every 12 hours for 7 days. Dispense fourteen (14). No refills. Substitution is permissible. -- Radha Villanueva A.R.N.P.
--- NOTE | 2016-11-30 00:10 | ED MAR SUMMARY ---
..... Medication Administration Record [facility] [address] [address] Patient: TERRI VILLASEÑOR Visit ID: [id number] 46y, F Weight: 54.4 kg Height/Length: 63 in BMI: 21.2 ALLERGIES: Erythromycin Given 19:14 11/29/2016 Chuy Martinez R.N. Medication Administered: ZOFRAN [IVP] (ONDANSETRON HCL), Dose: 4 mg IVP over 1 minute(s), Site: #1 left wrist. Medication Ordered: Zofran IV 4 mg (NOW). Given 21:33 11/29/2016 Felix Gonzales R.N. Medication Administered: ATIVAN [IVP] (LORAZEPAM), Dose: 2 mg IVP, Site: #2 right AC. Medication Ordered: Ativan IV 2 mg (HIGH ALERT MEDICATION, NOW).
--- NOTE | 2016-11-30 00:10 | ED MED RECONCILIATION SUMMARY ---
Patient: TERRI VILLASEÑOR Medication Reconciliation Report [facility] VisitID: [id number] [address] [place] [address] 46y, F Registration Date/Time: 11/29/2016 Weight: 54.4 kg Height/Length: 63 in. BMI: 21.3 ALLERGIES: Erythromycin The patient's Home Medications are listed below: THE FOLLOWING MEDICATIONS NEED TO BE RECONCILED: Atenolol Oral 25 mg, at bedtime Lisinopril Oral 20 mg, 2x a day Omeprazole Oral 20 mg, daily Ranitidine HCl Oral 150 mg, 2x a day The source(s) of the original Home Medication information: Not obtained. The following Medications were given to the patient in the Emergency Department: Zofran [IVP] IVP 4 mg, administered: 11/29/2016 7:14:00 PM Ativan [IVP] IVP 2 mg, administered: 11/29/2016 9:33:00 PM The following Medications were prescribed to the patient: Bactrim DS 800 mg / 160 mg: Take 1 tablet orally every 12 hours for 7 days. Dispense fourteen (14). No refills. Substitution is permissible. -- Radha Villanueva A.R.N.P.
--- NOTE | 2016-11-30 00:10 | ED MAR SUMMARY ---
..... Medication Administration Record [facility] [address] [place] [address] Patient: TERRI VILLASEÑOR Visit ID: [id number] 46y, F Weight: 54.4 kg Height/Length: 63 in BMI: 21.2 ALLERGIES: Erythromycin Given 19:14 11/29/2016 Chuy Martinez R.N. Medication Administered: ZOFRAN [IVP] (ONDANSETRON HCL), Dose: 4 mg IVP over 1 minute(s), Site: #1 left wrist. Medication Ordered: Zofran IV 4 mg (NOW). Given 21:33 11/29/2016 Felix Gonzales R.N. Medication Administered: ATIVAN [IVP] (LORAZEPAM), Dose: 2 mg IVP, Site: #2 right AC. Medication Ordered: Ativan IV 2 mg (HIGH ALERT MEDICATION, NOW).
== END 2016-11-29 23:00 | disposition home or self-care (01) ==
LOC: ED SRH 18:18
DX: N39.0 Urinary tract infection, site not specified (principal); I10 Essential (primary) hypertension; S09.93XA Unspecified injury of face, initial encounter; S80.212A Abrasion, left knee, initial encounter; W01.0XXA Fall on same level from slipping, tripping and stumbling without subsequent striking against object, initial encounter; Y93.89 Activity, other specified; Y92.009 Unspecified place in unspecified non-institutional (private) residence as the place of occurrence of the external cause; Y99.8 Other external cause status; F17.210 Nicotine dependence, cigarettes, uncomplicated; Z87.19 Personal history of other diseases of the digestive system
CPT/HCPCS: 90004; 90100; 90148; 90469; 90616; 91556; 92010; 92610; 92760; 92761; 92762; 92763; 92764; 92765; 92766; 92767; 95059